=== PATIENT | female | born 1990 | race Asian ===

== ENCOUNTER 2017-10-18 09:01 | Outpatient (CLI) | payer OTHER ==
--- NOTE | 2017-10-18 11:52 | ULT ---
OB ULTRASOUND: Date: 10/18/17 HISTORY: Intrauterine , evaluate anatomy. FINDINGS: There is a single intrauterine gestation in breech presentation. Cardiac Doppler demonstrates h eart tones with a heart rate of 145 beats/minute. The placenta is located posteriorly and is felicita rderline low lying. There is a normal amount of amniotic fluid with an amniotic fluid index of 13.3 c m. Cervical length measures 4.86 cm based on transabdominal imaging. measurements: BPD: 4.26 cm, 18 weeks/6 days HC: 16.09 cm, 18 weeks/6 days AC: 13.87 cm, 19 weeks/2 days FL: 2.59 cm, 17 weeks/6 days The estimated gestational age by ultrasound is 18 weeks/4 days with an CRYSTAL on 03/17/18. Gestational a ge by last menstrual period is 18 weeks/6 days. The estimated weight by ultrasound is 250 gm (9 oz). This represents 33rd percentile for weight. The cerebellum, visualized portions of the spine, four chamber heart, stomach, bilatera l kidneys, and urinary bladder, as well as cord insertion, are visualized and demonstrate normal sono graphic appearance. A three vessel cord is not delineated, but there is flow on either side of the ur inary bladder suggesting a three vessel cord. No anomalies are seen. IMPRESSION: 1. Single intrauterine gestation in breech presentation with heart tones documented. 2. Estimated gestational age by ultrasound is 18 weeks/4 days with CRYSTAL on 03/17/18. 3. Estimated weight is 250 gm (9 oz). 4. Amniotic fluid index measures 13.3 cm. POS: [facility]
== END 2017-10-18 09:02 | disposition home or self-care (01) ==
LOC: SCSULT 09:01
PROVIDERS: ATTEND Family Medicine
DX: Z34.82 Encounter for supervision of other normal pregnancy, second trimester (principal); Z3A.18 18 weeks gestation of pregnancy
CPT/HCPCS: 76805

== ENCOUNTER → 2017-11-17 | Day surgery (SDC) | payer OTHER ==
[2017-11-17 12:26] VITALS: BMI 23.2
[2017-11-17 13:25] LABS: FFN Internal QC Analyzer PASS (PASS); Fetal Fibronectin Negative (Negative)
[2017-11-17 13:26] LABS: FFN Internal QC Cassette PASS (PASS)
--- NOTE | 2017-11-17 13:35 | PDOC.LDHP ---
Labor and Delivery H&P Chief complaint: decreased movement HPI: 27 y/o at 23w1d, patient of Dr. Antonette Beck, presents with decreased movement. She reports that she gets angry at her and is worried that yelling at him has had a negative effect on the baby. She has had some cramping but is not feeling anything today. Denies VB, LOF, or UTI sx. ROS neg for HEENT, cv, pulm, gi, gu, neuro, psych, skin, musculoskeletal, or constitutional symptoms other than mentioned above. OB History Details: 1 prior at term Current complications: none Past Medical History: None Current medications: pre-katerina vitamins, other (Nausea medicine) Previous surgical history: none Allergies/Adverse Reactions: Allergies Allergy/AdvReac Type Severity Reaction Status Date / Time No Known Allergies Allergy Unverified 11/17/17 12:10 Social history: none - Physical Exam Vital signs reviewed and normal: yes General: NAD, resting Lungs: nonlabored breathing Abdomen: gravid Extremeties: no edema FHT: category 1 (140s, mod variability, no decels) [place] contractions every: 3 mins - Vaginal Exam cm dilated: 0 (firm) Effacement: 0% Station: -3 - OB Labs Additional Labs: FFN negative - Assessment 27 y/o at 23w1d with movement and reassuring NST. FFN negative, ctx not palpable, patient asymptomatic. - Plan -: D/c home with precautions. Advised to keep all appointments.
== END ==
LOC: L&D/OP 11:24
PROVIDERS: ATTEND Family Medicine
DX: O36.8120 Decreased fetal movements, second trimester, not applicable or unspecified (principal); Z3A.23 23 weeks gestation of pregnancy
CPT/HCPCS: 82731; 99283

== ENCOUNTER 2017-12-17 10:48 | Outpatient (CLI) | payer OTHER | END 2017-12-17 10:49 | disposition home or self-care (01) | LOC: BICULT 10:48 | PROVIDERS: ATTEND Family Medicine | DX: O44.43 Low lying placenta NOS or without hemorrhage, third trimester (principal) | CPT/HCPCS: 76816 ==

== ENCOUNTER 2018-03-09 09:13 | Inpatient (IN) | payer MEDICAID, OTHER, SELFPAY ==
[2018-03-09 09:43] VITALS: BMI 24.5
[2018-03-09 11:22] LABS: #Basophils 0.1 thou/uL (0.0-0.2); #Lymphocytes 1.7 thou/uL (1.20-3.40); #Monocytes 0.8 thou/uL (0.11-0.59); #Neutrophils 10.8 thou/uL (1.40-6.50); %Basophils 0.5 % (0.0-1.0); %Eosinophils 0.2 % (0.0-10.0); %Lymphocytes 12.3 % (21.0-51.0); %Monocytes 6.3 % (0.0-10.0); %Neutrophils 80.7 % (42.0-75.0); Hemoglobin 14.5 g/dL (12.0-16.0); Mean Corpuscular HGB CONC 33.1 g/dL (32.0-36.0); Mean Corpuscular Hemoglobin 28.3 pg (27.0-31.0); Mean Corpuscular Volume 85.4 fL (78.0-98.0); Mean Platelet Volume 8.6 fL (7.4-10.4); Platelet Count 308 thou/uL (130-400); RBC Distribution Width 15.1 % (11.5-14.5); Red Blood Cell (RBC) Count 5.12 mill/uL (4.20-5.40); White Blood Cell (WBC) Count 13.3 thou/uL (4.8-10.8)
[2018-03-09 12:08] LABS: HBSAg Index 0.34 S/CO (0-0.99); HIV (1/2) Antibody/Antigen Non-Reactive (NonReactive); HIV 1/2 INDEX 0.16 S/CO (<1.00); Hep B Surf Ag Non-Reactive S/CO (NonReactive); Syphilis Antibody Nonreactive (Nonreactive); Syphilis Antibody Index 0.06 S/CO (<1.00 Non-Reactive)
[2018-03-09] MEDS ORDERED: NS / Oxytocin 40 units/1000ml 1,000 ML ONE (12:28)
[2018-03-09] MEDS ORDERED: Lidocaine 1% (PF) 30 ML VIAL ONE (12:28)
[2018-03-09] MEDS ORDERED: Lidocaine 1% PF 5 ML VIAL ONE (12:28)
[2018-03-09] MEDS ORDERED: Lidocaine 1% (PF) 30 ML VIAL SC PRN (13:41)
[2018-03-09] MEDS ORDERED: Misoprostol 200 MCG TAB PR PRN (13:41)
[2018-03-09] MEDS ORDERED: Butorphanol Tartrate 1 MG/ML VIAL SLOW IVP PRN (13:41)
[2018-03-09] MEDS ORDERED: Acetaminophen 500 MG TAB PO PRN (13:41)
[2018-03-09] MEDS ORDERED: HYDROcodone/Acetaminophen 5/325 mg Tablet PO PRN ×2 (13:41→16:24)
[2018-03-09] MEDS ORDERED: Ibuprofen 800 MG TAB PO PRN (13:41)
[2018-03-09] MEDS ORDERED: NS / Oxytocin 40 units/1000ml 1,000 ML IV PRN (13:41)
[2018-03-09] MEDS ORDERED: Acetaminophen/Codeine 30-300mg Tablet PO PRN ×2 (13:41→16:24)
[2018-03-09] MEDS ORDERED: Ondansetron PF 4 MG/2 ML Vial IVP PRN ×2 (13:41→16:24)
[2018-03-09] MEDS ORDERED: Promethazine HCl 25 MG/ML VIAL IM PRN (13:41)
[2018-03-09] MEDS ORDERED: Benzocaine/Menthol 20-0.5% 60 ML CAN TOP PRN (16:24)
[2018-03-09] MEDS ORDERED: Preparation H Ointment 28 GM TUBE PR PRN (16:24)
[2018-03-09] MEDS ORDERED: NS / Oxytocin 40 units/1000ml 1,000 ML IV SCH (16:24)
[2018-03-09] MEDS ORDERED: Milk Of Magnesia 30 ML UDCUP PO PRN (16:24)
[2018-03-09] MEDS ORDERED: diphenhydrAMINE 25 MG CAP PO PRN (16:24)
[2018-03-09] MEDS ORDERED: Bisacodyl 10 MG SUPP PR PRN (16:24)
[2018-03-09] MEDS: Ferrous Sulfate 325 MG TAB PO SCH (18:08)
[2018-03-09] MEDS: Lactated Ringer's 1,000 ML IV SCH (18:08)
[2018-03-09] MEDS: Docusate Calcium (SURFAK) 240 MG CAP PO SCH (21:29)
[2018-03-09] MEDS: Ibuprofen 800 MG TAB PO SCH (21:29)
[2018-03-10] MEDS: Lactated Ringer's 1,000 ML IV SCH ×3 (00:56→14:42)
[2018-03-10] MEDS: Ibuprofen 800 MG TAB PO SCH ×2 (05:11→14:42)
[2018-03-10] MEDS: Ferrous Sulfate 325 MG TAB PO SCH ×2 (08:07→15:52)
[2018-03-10] MEDS ORDERED: Prenatal Vitamin 1 TAB PO SCH (09:00)
[2018-03-10] MEDS: Docusate Calcium (SURFAK) 240 MG CAP PO SCH (09:17)
[2018-03-10 12:15] VITALS: BP 118/74; TEMP 97.8
== END 2018-03-10 18:32 | disposition home or self-care (01) | DRG 807 ==
LOC: L&D 09:13 → 3SW 16:08 → EDSTATUS 03-12 09:08
PROVIDERS: ADMIT Family Medicine; ATTEND Family Medicine
PROC: 10E0XZZ Delivery of Products of Conception, External Approach (ICD-10-PCS; principal; 2018-03-09)
PROC: 0HQ9XZZ Repair Perineum Skin, External Approach (ICD-10-PCS; 2018-03-09)
PROC: 10907ZC Drainage of Amniotic Fluid, Therapeutic from Products of Conception, Via Natural or Artificial Opening (ICD-10-PCS; 2018-03-09)
DX: O24.420 Gestational diabetes mellitus in childbirth, diet controlled (principal); Z37.0 Single live birth; Z3A.39 39 weeks gestation of pregnancy; O70.0 First degree perineal laceration during delivery
CPT/HCPCS: 85025; 86780; 86850; 86900; 86901; 87340; 87389; J2001